=== PATIENT | male | born 1960 | race Caucasian/White ===

== ENCOUNTER 2020-02-19 12:42 | Emergency (ER) | payer BC ==
[2020-02-19] MEDS ORDERED: FLU VACC QS2020-21(6MOS UP)/PF 60 MCG/0.5 ML SYRINGE IM ONE (13:30)
--- NOTE | 2020-02-19 13:46 | EDM.PDOC ---
ED HPI GENERAL MEDICAL PROBLEM - General Chief Complaint: Headache Stated Complaint: HEAD INJURY Time Seen by Provider: 02/19/20 12:57 Source of Information: Reports: Patient, RN Notes Reviewed History Limitations: Reports: No Limitations - History of Present Illness INITIAL COMMENTS - FREE TEXT/NARRATIVE: Patient is a 60-year-old male presenting to the emergency department with complaints of ongoing headaches after falling and hitting his head approximately 5 days ago. He believes at the time that he fell, that he likely did lose consciousness. He was outside and fell backwards, hitting his head on the concrete. He did have a laceration to the back of his head, however this is mostly healed at this time. He states he was feeling pretty well when he went to bed the evening of the accident, however upon waking in the morning he had a severe headache with nasal congestion and pressure. He has been taking sinus medication since that time which has improved the symptoms. He also has decreased taste and smell. He denies any vision changes, dizziness, nausea, or vomiting. He has been using extra strength Excedrin to treat the symptoms. He is concerned that he may have sustained a brain injury or that he may have COVID-19. He has had no fever or chills and denies cough or shortness of breath. Posterior Headache Pain Score (Numeric/FACES): 3 - Related Data Allergies Allergy/AdvReac Type Severity Reaction Status Date / Time No Known Allergies Allergy Verified 02/19/20 13:01 Home Meds: Home Meds Ciprofloxacin HCl [Cipro] 500 mg PO DAILY 02/19/20 [History] Dicyclomine [Bentyl] 10 mg PO DAILY 02/19/20 [History] Escitalopram Oxalate [Lexapro] 5 mg PO DAILY 02/19/20 [History] Pantoprazole Sodium [Protonix] 40 mg PO DAILY 02/19/20 [History] metroNIDAZOLE [Flagyl] 500 mg PO TID 02/19/20 [History] traZODone HCl [Trazodone HCl] 50 mg PO BEDTIME 02/19/20 [History] Past Medical History HEENT History: Reports: Impaired Vision, Other (See Below) Other HEENT History: sinus surgery Cardiovascular History: Reports: Other (See Below) Other Cardiovascular History: stress test x 2 Gastrointestinal History: Reports: Diverticulosis, GERD Musculoskeletal History: Reports: Arthritis Psychiatric History: Reports: Anxiety - Infectious Disease History Infectious Disease History: Reports: Other (See Below) Other Infectious Disease History: jaundice baby and had blood transfusion - Past Surgical History GI Surgical History: Reports: Colonoscopy, Hernia, Inguinal Social & Family History - Tobacco Use Tobacco Use Status *Q: Current Every Day Tobacco User Years of Tobacco use: 3 Packs/Tins Daily: 1 - Recreational Drug Use Recreational Drug Use: No ED ROS GENERAL - Review of Systems Review Of Systems: See Below Constitutional: Reports: No Symptoms. Denies: Fever, Chills, Weakness, Fatigue HEENT: Reports: Sinus Problem Respiratory: Reports: No Symptoms. Denies: Shortness of Breath, Wheezing, Cough Cardiovascular: Reports: No Symptoms Endocrine: Reports: No Symptoms GI/Abdominal: Reports: No Symptoms. Denies: Abdominal Pain, Diarrhea, Nausea, Vomiting : Reports: No Symptoms Musculoskeletal: Reports: No Symptoms. Denies: Neck Pain Skin: Reports: No Symptoms Neurological: Reports: Headache. Denies: Confusion, Dizziness Psychiatric: Reports: No Symptoms Hematologic/Lymphatic: Reports: No Symptoms Immunologic: Reports: No Symptoms - Physical Exam Exam: See Below Exam Limited By: No Limitations General Appearance: Alert, WD/WN, No Apparent Distress Respiratory/Chest: No Respiratory Distress, Lungs Clear, Normal Breath Sounds, No Accessory Muscle Use, Chest Non-Tender Cardiovascular: Normal Peripheral Pulses, Regular Rate, Rhythm, No Edema, No Gallop, No JVD, No Murmur, No Rub GI/Abdominal: Normal Bowel Sounds, Soft, Non-Tender, No Organomegaly, No Distention, No Abnormal Bruit, No Mass Neuro Exam (Abbreviated): Alert, Oriented, CN II-XII Intact, Normal Cognition, Normal Gait, Normal Reflexes, No Motor/Sensory Deficits Extremities: Normal Inspection, Normal Range of Motion, Non-Tender, No Pedal Edema, Normal Capillary Refill Psychiatric: Normal Affect, Normal Mood Skin Exam: Warm, Dry, Intact, Normal Color, No Rash Course - Vital Signs Last Recorded V/S: Last Vital Signs Temp 97.7 F 02/19/20 13:15 Pulse 78 02/19/20 13:15 Resp 20 02/19/20 13:15 BP 135/94 H 02/19/20 13:15 Pulse Ox 97 02/19/20 13:15 - Orders/Labs/Meds Orders: Active Orders 24 hr Category Date Time Status Influenza Vaccine Charge [RC] .DISCHARGE Care 02/19/20 13:13 Active Head wo Cont [CT] Stat Exams 02/19/20 13:19 Taken CORONAVIRUS COVID-19 PCR PHL Routine Lab 02/19/20 14:19 Ordered Meds: Medications Discontinued Medications Generic Name Dose Route Start Last Admin Trade Name Jonah PRN Reason Stop Dose Admin Influenza Virus Vaccine 60 mcg 02/19/20 13:30 Fluzone Quad Syringe IM 02/19/20 13:31 .ONCE ONE - Re-Assessments/Exams Free Text/Narrative Re-Assessment/Exam: Patient is a 60-year-old male presenting to the emergency department with recurrent generalized headaches, nasal congestion, and sinus tenderness. Symptoms began about 5 days ago after he had fallen and hit his posterior head. He is concerned he could have brain injury or Covid. He denies any vision changes, nausea, vomiting, or dizziness. We will complete a CT scan of his head. Ultrasound of the normal, we will do a state send out coronavirus test. 02/19/20 14:[address] was negative for any acute abnormalities. Discussed that he should start using Flonase nasal spray for his sinus congestion. We will complete a coronavirus test today. Discharge instructions as documented. Departure - Departure Time of Disposition: 14:21 Disposition: Home, Self-Care 01 Condition: Good Clinical Impression: Generalized headaches, Sinus congestion Head injury Qualifiers: Encounter type: initial encounter Qualified Code(s): S09.90XA - Unspecified injury of head, initial encounter - Discharge Information *PRESCRIPTION DRUG MONITORING PROGRAM REVIEWED*: No *COPY OF PRESCRIPTION DRUG MONITORING REPORT IN PATIENT MADONNA: No Instructions: Sinus Headache Referrals: PCP,None [Primary Care Provider] - Forms: ED Department Discharge Additional Instructions: You were seen in the emergency department today for recurrent headaches as well as sinus pressure after falling and hitting her head. CT scan of your head was completed and found to be normal. A coronavirus test has been completed today. Recommend you isolate until the results are available. Purchase [id number] Flonase nasal spray to use in addition to Sudafed and Excedrin that you have been using. If you experience any new or worsening symptoms of concern, please not hesitate to return to the emergency department. Sepsis Event Note (ED) - Evaluation Sepsis Screening Result: No Definite Risk - Focused Exam Vital Signs: Vital Signs Temp Pulse Resp BP Pulse Ox 02/19/20 13:15 97.7 F 78 20 135/94 H 97 - My Orders Last 24 Hours: My Active Orders 02/19/20 13:13 Influenza Vaccine Charge [RC] .DISCHARGE 02/19/20 13:19 Head wo Cont [CT] Stat 02/19/20 14:19 CORONAVIRUS COVID-19 PCR PHL Routine - Assessment/Plan Last 24 Hours: My Active Orders 02/19/20 13:13 Influenza Vaccine Charge [RC] .DISCHARGE 02/19/20 13:19 Head wo Cont [CT] Stat 02/19/20 14:19 CORONAVIRUS COVID-19 PCR PHL Routine
--- NOTE | 2020-02-21 15:21 | CT ---
"PROCEDURE INFORMATION: Exam: CT Head Without Contrast Exam date and time: 02/19/2020 1:39 PM Age: 60 years old Clinical indication: Pain; Headache; Post-traumatic; Patient HX: Patient fell and hit his head on of last week, scab/oldlateration healing on the back of his head. Complaining of sinus congestion TECHNIQUE: Imaging protocol: Computed tomography of the head without contrast. COMPARISON: No relevant prior studies available. FINDINGS: Brain: There is no evidence of acute hemorrhage within the brain parenchyma or the subarachnoid space. There is no evidence of acute hemorrhage within the brain parenchyma or the subarachnoid space. Cerebral ventricles: The ventricular system demonstrates mild diffuse compensatory enlargement. There is no significant ventricular effacement or midline shift. Bones/joints: The skull is normal. Paranasal sinuses: The visualized portions of the sinuses are normal. Mastoid air cells: The mastoid sinuses are normal. Orbital cavity: The orbits are normal. Soft tissues: There is mild soft tissue disruption just to the right of midline in the parietooccipital scalp. IMPRESSION: No acute abnormality. Thank you for allowing us to participate in the care of your patient. PRAJAPATI NADEGE | Final Radiology Report CONFIDENTIALITY STATEMENT This report is intended only for use by the referring physician, and only in accordance with law. If you received this in error, call [phone]. Page 2 of 2 Dictated and Authenticated by: Chandan Giordano MD 02/19/2020 3:07 PM Central Time ([place] & [place]) NILESH"
== END 2020-02-19 15:00 | disposition home or self-care (01) ==
LOC: JD.ED 12:42
DX: S09.90XA Unspecified injury of head, initial encounter (principal); J34.89 Other specified disorders of nose and nasal sinuses; K21.9 Gastro-esophageal reflux disease without esophagitis; F41.9 Anxiety disorder, unspecified; Z23 Encounter for immunization; F17.210 Nicotine dependence, cigarettes, uncomplicated; Z79.899 Other long term (current) drug therapy; W01.10XA Fall on same level from slipping, tripping and stumbling with subsequent striking against unspecified object, initial encounter
CPT/HCPCS: 70450; 70450-26; 90686; 99283; 99284-25; G0008; U0002